=== PATIENT | male | born 1960 | race Caucasian/White ===

== ENCOUNTER 2020-03-16 13:55 | Emergency (ER) | payer BC ==
[~2020-03-16] VITALS: Ht 180.3 cm; Wt 105.0 kg
[2020-03-16] MEDS ORDERED: morphine 4 MG/ML inj SYRINge IV PRN (14:25)
[2020-03-16] MEDS ORDERED: ondansetron/PF 4mg/2ml inj IV ONE (14:25)
[2020-03-16 14:54] LABS: BASOPHILS # (AUTO) 0.1 X10'3 (0-0.2); BASOPHILS % (AUTO) 0.8 % (0-1); EOSINOPHILS # (AUTO) 0.1 X10'3 (0-0.9); EOSINOPHILS % (AUTO) 0.7 % (0-6); HEMATOCRIT 44.6 % (42.0-52.0); HEMOGLOBIN 15.5 g/dl (14.0-17.9); LYMPHOCYTES # (AUTO) 1.6 X10'3 (1.1-4.8); LYMPHOCYTES % (AUTO) 14.9 % (21-51); MEAN CORPUSCULAR HEMOGLOBIN 31.6 PG (27.0-31.0); MEAN CORPUSCULAR HGB CONC 34.8 g/dL (33.0-36.5); MEAN CORPUSCULAR VOLUME 90.8 FL (78-98); MEAN PLATELET VOLUME 8.7 FL (7.4-10.4); MONOCYTES # (AUTO) 0.5 X10'3 (0-0.9); MONOCYTES % (AUTO) 4.9 % (2-12); NEUTROPHILS # (AUTO) 8.6 X10'3 (1.8-7.7); NEUTROPHILS % (AUTO) 78.7 % (42-75); PLATELET COUNT 197 X10'3 (140-440); RED BLOOD COUNT 4.92 X10'6 (4.70-6.10); WHITE BLOOD COUNT 10.9 X10'3 (4.5-11.0)
[2020-03-16 15:01] LABS: PARTIAL THROMBOPLASTIN TIME 25 SECONDS (22-32)
[2020-03-16 15:13] LABS: ALANINE AMINOTRANSFERASE 59 U/L (12-78); ALBUMIN 4.2 G/DL (3.4-5.0); ALBUMIN/GLOBULIN RATIO 1.3 (1.1-1.5); ALKALINE PHOSPHATASE 83 IU/L (46-116); ANION GAP 15 (8-16); ASPARTATE AMINO TRANSFERASE 77 U/L (10-37); BILIRUBIN,TOTAL 1.9 MG/DL (0.1-1.0); BLOOD UREA NITROGEN 19 MG/DL (7-18); BUN/CREATININE RATIO 13.9 (5.4-32.0); CALCIUM 9.6 MG/DL (8.5-10.1); CHLORIDE 103 MMOL/L (99-107); CREATININE 1.37 MG/DL (0.60-1.10); GLUCOSE 132 MG/DL (70-104); POTASSIUM 3.2 MMOL/L (3.5-5.1); SODIUM 142 MMOL/L (135-145); TOTAL CARBON DIOXIDE 23.8 MMOL/L (24-32); TOTAL PROTEIN 7.4 G/DL (6.4-8.2); eGFR 53 ML/MIN
--- NOTE | 2020-03-16 15:13 | NUR ---
PT STATES HE IS FEELING BETTER AND DOESNT WANT ANY PAIN MEDS AT THIS TIME. US TECH IN ROOM NOW FOR PROCEDURE.
[2020-03-16 15:16] LABS: LIPASE 115 U/L (73-393); MAGNESIUM 1.7 MG/DL (1.5-2.4)
--- NOTE | 2020-03-16 15:27 | NUR ---
PT STATES HE USED TO BE ON A BLOOD PRESSURE MEDICATION BUT STOPPED, LOST 25 LBS IN LAST FEW MONTHS. DOESNT TAKE ANY MEDICATIONS NOW.
[2020-03-16 18:32] VITALS: BP 177/87
== END 2020-03-16 18:35 | disposition home or self-care (01) ==
LOC: ER 13:56
DX: R10.13 Epigastric pain (principal); K80.80 Other cholelithiasis without obstruction; I10 Essential (primary) hypertension; Z72.89 Other problems related to lifestyle
CPT/HCPCS: 36415; 71045; 71250; 74176; 76700; 80053; 83605; 83690; 83735; 83880; 84484; 85025; 85610; 85730; 93005; 96374; 96375; 99285; J2270; J2405